=== PATIENT | male | born 1950 | race Caucasian/White ===

== ENCOUNTER → 2018-02-07 | Outpatient (CLI) | payer MEDICARE, BC | END | disposition home or self-care (01) | LOC: KCIC US 11:47 | DX: M48.07 Spinal stenosis, lumbosacral region (principal); M51.36 Other intervertebral disc degeneration, lumbar region; M47.896 Other spondylosis, lumbar region; M25.78 Osteophyte, vertebrae; R94.6 Abnormal results of thyroid function studies | CPT/HCPCS: 72148; 76536 ==

== ENCOUNTER 2018-03-28 09:53 | Emergency (ER) | payer MEDICARE, BC ==
[2018-03-28 10:58] LABS: BILIRUBIN,URINE NEGATIVE (NEG); CLARITY,URINE CLEAR; COLOR,URINE YELLOW; GLUCOSE,URINE NEGATIVE (NEG); NITRITE,URINE NEGATIVE (NEG); PROTEIN,URINE NEGATIVE (NEG-TRACE); UROBILINOGEN,URINE 0.2 mg/dL (0.2 mg/dL)
[2018-03-28] MEDS ORDERED: CONTRAST GIVEN. MC (11:00)
[2018-03-28] MEDS: FAMOTIDINE 20 MG/2 ML VIAL IVP (11:13)
[2018-03-28] MEDS: IV NORMAL SALINE 1000ML BAG 1,000 ML IV (11:14)
[2018-03-28] MEDS: ONDANSETRON PF 4 MG/2 ML VIAL. IV (11:25)
[2018-03-28] MEDS: fentaNYL PF VIAL 100 MCG/2 ML VIAL IV (11:25)
[2018-03-28 11:26] LABS: ADD MAN DIFF? NO
[2018-03-28 11:27] LABS: BACTERIA,URINE FEW /HPF (0-FEW); RBC,URINE RARE /HPF (0-2); SQUAMOUS EPITHELIAL CELL,UR FEW /LPF; WBC,URINE RARE /HPF (0-4)
[2018-03-28 11:33] LABS: BASO % 0 % (0-3); EOS # 0.1 x10^3/uL (0.0-0.7); EOS % 1 % (0-3); HEMATOCRIT 44.5 % (39.0-53.0); HEMOGLOBIN 15.5 g/dL (13.0-17.5); LYMPH % 31 % (24-48); MEAN CORPUSCULAR HEMOGLOBIN 34 pg (25-35); MEAN CORPUSCULAR HGB CONC 35 g/dL (31-37); MEAN CORPUSCULAR VOLUME 98 fL (79-100); MONO # 0.6 x10^3/uL (0.0-1.1); MONO % 9 % (0-9); NEUT # 3.6 x10^3uL (1.8-7.7); NEUT % 58 % (31-73); PLATELET COUNT 211 x10^3/uL (140-400); RED BLOOD COUNT 4.53 x10^6/uL (4.30-5.70); RED CELL DISTRIBUTION WIDTH 13.3 % (11.5-14.5); WHITE BLOOD COUNT 6.2 x10^3/uL (4.0-11.0)
[2018-03-28 11:38] LABS: ANION GAP 11 (6-14); BLOOD UREA NITROGEN 18 mg/dL (8-26); BUN/CREATININE RATIO 18 (6-20); CALCIUM 9.3 mg/dL (8.5-10.1); CARBON DIOXIDE 26 mmol/L (21-32); CHLORIDE 104 mmol/L (98-107); GFR 74.8; GLUCOSE 108 mg/dL (70-99); POTASSIUM 4.2 mmol/L (3.5-5.1); SODIUM 141 mmol/L (136-145)
[2018-03-28 11:46] LABS: ALBUMIN 4.1 g/dL (3.4-5.0); ALK PHOS 67 U/L (46-116); ALT (SGPT) 21 U/L (16-63); AST (SGOT) 21 U/L (15-37); LIPASE 123 U/L (73-393); MAGNESIUM 1.9 mg/dL (1.8-2.4); TOTAL BILIRUBIN 0.5 mg/dL (0.2-1.0); TOTAL PROTEIN 8.3 g/dL (6.4-8.2)
[2018-03-28] MEDS: IOHEXOL 300 MG/ML 100ML VIAL. IV (11:46)
[2018-03-28 12:09] LABS: PARTIAL THROMBOPLASTIN TIME 29 SEC (24-38); PROTHROMBIN TIME PATIENT 12.9 SEC (11.7-14.0)
[2018-03-28 13:23] LABS: FECAL OB PT NEGATIVE (NEG); NEG OBC FOB NEG; POS OBC FOB POS
== END 2018-03-28 13:27 | disposition home or self-care (01) ==
LOC: ER 09:53
DX: K62.5 Hemorrhage of anus and rectum (principal); I10 Essential (primary) hypertension; F17.200 Nicotine dependence, unspecified, uncomplicated
CPT/HCPCS: 36415; 74177; 80053; 81001; 82274; 83690; 83735; 85025; 85610; 85730; 96374; 96375; 99285-25; J2405; J3010; J7030; Q9967; S0028

== ENCOUNTER 2019-06-16 16:55 | Emergency (ER) | payer BC, MEDICARE ==
[~2019-06-16] VITALS: Ht 182.9 cm; Wt 90.7 kg
[~2019-06-16 16:55] MED LIST: ASPI81TA59 PO; ATOR20TA PO; BUDE10.2 IH; Diltiazem Hcl PO; HYDR25SU18 RC; HYOS0.1265 SL; IPRA3AMP29 NEB; LEVO500T59 PO; NITR0.4T24 SL; OXYC10TA PO
[2019-06-16] MEDS ORDERED: IV NORMAL SALINE 1000ML BAG 1,000 ML IV ONE (17:15)
--- NOTE | 2019-06-16 17:22 | PHYS DOC ---
Past Medical History Past Medical History: Arthritis, Hypertension, Liver Disease, Pneumonia Additional Past Medical Histor: OSTEOARTHRITIS,HEP C, chronic back pain, RECTAL BLEEDING ([employer]) Past Surgical History: Other Additional Past Surgical Histo: RIGHT ELBOW IMPLANT, hernia repair ([employer]) Alcohol Use: Rarely Drug Use: None (SAI GRACE APRN) Adult General Chief Complaint Chief Complaint: URINARY RETENTION HPI HPI Patient is a 68 year old male who presents with urinary retention �2 days. Patient states that he feels like he has to urinate frequently and has burning in his urethra and bladder pain. Patient states bladder pain is constant but it does get worse at times. Patient states he feels that his bladder is very full and is painful. His pain does not radiate anywhere. Patient denies any nausea or vomiting or diarrhea. Patient however states that at times he feels like he has to have a bowel movement and only has small round hard pieces of stool come out. Patient states he has been having trouble with constipation for some time. It has been going a little every day. She rates his pain a 10 out 10. ([employer]) Review of Systems Review of Systems GI: abdominal pain, Constipation, denies nausea, vomiting, bloody stools or diarrhea [] : dysuria or denies hematuria [] All other systems were reviewed and found to be within normal limits, except as documented in this note. ([employer]) Current Medications Current Medications Current Medications Medications (Trade) Dose Ordered Sig/Cat Start Time Stop Time Status Last Admin Dose Admin Fentanyl Citrate (Fentanyl 2ml Vial) 50 mcg 1X ONCE 06/16/19 18:30 06/16/19 18:31 DC 06/16/19 18:33 50 MCG Phenazopyridine HCl (Pyridium) 200 mg 1X ONCE 06/16/19 18:30 06/16/19 18:31 DC 06/16/19 18:33 200 MG Sodium Chloride 1,000 ml @ 1,000 mls/hr 1X ONCE 06/16/19 17:15 06/16/19 18:14 DC 06/16/19 17:59 1,000 MLS/HR (OSMEL EMANUEL MD) Allergies Allergies Allergies Coded Allergies Type Severity Reaction Last Updated Verified No Known Drug Allergies 04/16/16 No (OSMEL EMANUEL MD) Physical Exam Physical Exam Constitutional: Well developed, well nourished, no acute distress, non-toxic appearance. [] Cardiovascular:Heart rate regular rhythm, no murmur [] Lungs & Thorax: Bilateral breath sounds clear to auscultation [] Abdomen: Bowel sounds normal, soft, low mid tenderness, Distended bladder, no masses, no pulsatile masses. [] Skin: Warm, dry, no erythema, no rash. [] Back: No tenderness, no CVA tenderness. [] Extremities: No tenderness, no cyanosis, no clubbing, ROM intact, no edema. [] Neurologic: Alert and oriented X 3, normal motor function, normal sensory function, no focal deficits noted. [] Psychologic: Affect normal, judgement normal, mood normal. [] (SAI GRACE APRN) Current Patient Data Vital Signs Vital Signs Date Time Temp Pulse Resp B/P (MAP) Pulse Ox O2 Delivery O2 Flow Rate FiO2 06/16/19 19:50 81 18 96 06/16/19 18:33 Room Air 06/16/19 17:12 98.4 131/98 (109) 98.4 (OSMEL EMANUEL MD) Lab Values Laboratory Tests Test 06/16/19 17:20 06/16/19 17:55 Urine Collection Type Unknown Urine Color Yellow Urine Clarity Clear Urine pH 6.5 Urine Specific [place] <=1.005 Urine Protein Negative mg/dL (NEG-TRACE) Urine Glucose (UA) Negative mg/dL (NEG) Urine Ketones (Stick) Negative mg/dL (NEG) Urine Blood Negative (NEG) Urine Nitrite Negative (NEG) Urine Bilirubin Negative (NEG) Urine Urobilinogen Dipstick 0.2 mg/dL (0.2 mg/dL) Urine Leukocyte Esterase Negative (NEG) Urine RBC 0 /HPF (0-2) Urine WBC 0 /HPF (0-4) Urine Bacteria 0 /HPF (0-FEW) Urine Mucus Slight /LPF White Blood Count 8.3 x10^3/uL (4.0-11.0) Red Blood Count 4.53 x10^6/uL (4.30-5.70) Hemoglobin 15.3 g/dL (13.0-17.5) Hematocrit 43.7 % (39.0-53.0) Mean Corpuscular Volume 97 fL (79-100) Mean Corpuscular Hemoglobin 34 pg (25-35) Mean Corpuscular Hemoglobin Concent 35 g/dL (31-37) Red Cell Distribution Width 12.5 % (11.5-14.5) Platelet Count 201 x10^3/uL (140-400) Neutrophils (%) (Auto) 57 % (31-73) Lymphocytes (%) (Auto) 30 % (24-48) Monocytes (%) (Auto) 10 % (0-9) H Eosinophils (%) (Auto) 3 % (0-3) Basophils (%) (Auto) 0 % (0-3) Neutrophils # (Auto) 4.7 x10^3/uL (1.8-7.7) Lymphocytes # (Auto) 2.5 x10^3/uL (1.0-4.8) Monocytes # (Auto) 0.9 x10^3/uL (0.0-1.1) Eosinophils # (Auto) 0.2 x10^3/uL (0.0-0.7) Basophils # (Auto) 0.0 x10^3/uL (0.0-0.2) Sodium Level 134 mmol/L (136-145) L Potassium Level 3.6 mmol/L (3.5-5.1) Chloride Level 96 mmol/L (98-107) L Carbon Dioxide Level 26 mmol/L (21-32) Anion Gap 12 (6-14) Blood Urea Nitrogen 12 mg/dL (8-26) Creatinine 1.0 mg/dL (0.7-1.3) Estimated GFR (Cockcroft-Gault) 74.5 BUN/Creatinine Ratio 12 (6-20) Glucose Level 74 mg/dL (70-99) Calcium Level 9.6 mg/dL (8.5-10.1) Total Bilirubin 0.5 mg/dL (0.2-1.0) Aspartate Amino Transferase (AST) 31 U/L (15-37) Alanine Aminotransferase (ALT) 24 U/L (16-63) Alkaline Phosphatase 73 U/L (46-116) Total Protein 8.1 g/dL (6.4-8.2) Albumin 4.1 g/dL (3.4-5.0) Albumin/Globulin Ratio 1.0 (1.0-1.7) Laboratory Tests 06/16/19 17:55 Laboratory Tests 06/16/19 17:55 (OSMEL EMANUEL MD) Lab Values Laboratory Tests Test 06/16/19 17:20 06/16/19 17:55 Urine Collection Type Unknown Urine Color Yellow Urine Clarity Clear Urine pH 6.5 Urine Specific [place] <=1.005 Urine Protein Negative mg/dL (NEG-TRACE) Urine Glucose (UA) Negative mg/dL (NEG) Urine Ketones (Stick) Negative mg/dL (NEG) Urine Blood Negative (NEG) Urine Nitrite Negative (NEG) Urine Bilirubin Negative (NEG) Urine Urobilinogen Dipstick 0.2 mg/dL (0.2 mg/dL) Urine Leukocyte Esterase Negative (NEG) Urine RBC 0 /HPF (0-2) Urine WBC 0 /HPF (0-4) Urine Bacteria 0 /HPF (0-FEW) Urine Mucus Slight /LPF White Blood Count 8.3 x10^3/uL (4.0-11.0) Red Blood Count 4.53 x10^6/uL (4.30-5.70) Hemoglobin 15.3 g/dL (13.0-17.5) Hematocrit 43.7 % (39.0-53.0) Mean Corpuscular Volume 97 fL (79-100) Mean Corpuscular Hemoglobin 34 pg (25-35) Mean Corpuscular Hemoglobin Concent 35 g/dL (31-37) Red Cell Distribution Width 12.5 % (11.5-14.5) Platelet Count 201 x10^3/uL (140-400) Neutrophils (%) (Auto) 57 % (31-73) Lymphocytes (%) (Auto) 30 % (24-48) Monocytes (%) (Auto) 10 % (0-9) H Eosinophils (%) (Auto) 3 % (0-3) Basophils (%) (Auto) 0 % (0-3) Neutrophils # (Auto) 4.7 x10^3/uL (1.8-7.7) Lymphocytes # (Auto) 2.5 x10^3/uL (1.0-4.8) Monocytes # (Auto) 0.9 x10^3/uL (0.0-1.1) Eosinophils # (Auto) 0.2 x10^3/uL (0.0-0.7) Basophils # (Auto) 0.0 x10^3/uL (0.0-0.2) Sodium Level 134 mmol/L (136-145) L Potassium Level 3.6 mmol/L (3.5-5.1) Chloride Level 96 mmol/L (98-107) L Carbon Dioxide Level 26 mmol/L (21-32) Anion Gap 12 (6-14) Blood Urea Nitrogen 12 mg/dL (8-26) Creatinine 1.0 mg/dL (0.7-1.3) Estimated GFR (Cockcroft-Gault) 74.5 BUN/Creatinine Ratio 12 (6-20) Glucose Level 74 mg/dL (70-99) Calcium Level 9.6 mg/dL (8.5-10.1) Total Bilirubin 0.5 mg/dL (0.2-1.0) Aspartate Amino Transferase (AST) 31 U/L (15-37) Alanine Aminotransferase (ALT) 24 U/L (16-63) Alkaline Phosphatase 73 U/L (46-116) Total Protein 8.1 g/dL (6.4-8.2) Albumin 4.1 g/dL (3.4-5.0) Albumin/Globulin Ratio 1.0 (1.0-1.7) Laboratory Tests 06/16/19 17:55 Laboratory Tests 06/16/19 17:55 (SAI GRACE APRN) EKG EKG [] (SAI GRACE APRN) Radiology/Procedures Radiology/Procedures [] (SAI GRACE APRN) Impressions: [facility] [address] [place], [place] [id number] IMAGING REPORT Signed PATIENT: ADRIANNA CASTORENA BACCOUNT: [id number] : 1950 LOCATION: ER AGE: 68 SEX: M EXAM STATUS: REG ER ORD. PHYSICIAN: SAI GRACE APRN REASON: urinary retention, constipation PROCEDURE: CT ABDOMEN PELVIS WO CONTRAST Exam: CT abdomen and pelvis without contrast INDICATION: Urinary retention, constipation TECHNIQUE: Sequential axial images through the abdomen and pelvis obtained without IV contrast. Sagittal and coronal reformatted images were reconstructed from the axial data and reviewed. Comparisons: 03/28/2018 FINDINGS: Heart size is normal. No pericardial effusion. Visualized lung bases are clear. No pleural effusion. Evaluation of the solid abdominal organs is limited secondary to noncontrast technique. Liver, spleen, pancreas, gallbladder and adrenals are unremarkable. No perinephric inflammation or hydronephrosis. Several subcentimeter nonobstructing renal calculi within the left kidney. No ureteral calculi. Bladder is decompressed. Gonzalez balloon is noted within the bladder. There is diffuse lateral wall thickening. Large and small bowel are unremarkable. Appendix is normal. No free intra-abdominal air or fluid. No obstruction. Abdominal aorta has a normal course and caliber. No enlarged intra-abdominal lymph nodes are identified. No suspicious osseous lesions or acute fractures. IMPRESSION: 1. Diffuse bladder wall thickening. While this may be at least partly secondary to decompression recommend correlation with urinalysis to exclude cystitis. 2. Nonobstructing left renal calculi. No ureteral calculi or evidence for obstructive uropathy. Exposure: One or more of the following in the visualized dose reduction techniques were utilized for this examination: 1. Automated exposure control 2. Adjustment of the MA and/or KV according to patient size 3. Use of iterative of reconstructive technique Electronically signed by: Shaun Gipson MD (06/16/2019 5:58 PM) [facility] DICTATED and SIGNED BY: SHAUN GIPSON MD DATE: 06/16/19 1758 (SAI GRACE APRN) Course & Med Decision Making Course & Med Decision Making Patient is a 68 year old male who presents with urinary retention �2 days. Patient states that he feels like he has to urinate frequently and has burning in his urethra and bladder pain. Patient states bladder pain is constant but it does get worse at times. Patient states he feels that his bladder is very full and is painful. His pain does not radiate anywhere. Patient denies any nausea or vomiting or diarrhea. Patient however states that at times he feels like he has to have a bowel movement and only has small round hard pieces of stool come out. Patient states he has been having trouble with constipation for some time. It has been going a little every day. She rates his pain a 10 out 10. On arrival to the ED patient states he has urge to urinate and have a bowel movement. Patient went into the bathroom states he was unable to urinate or give a specimen. A ultrasound of his bladder showed 668ml in his bladder. Alert and oriented. Speaks in full clear sentences. Ambulates with a steady gait. Skin pink warm and dry. Low mid abdomen painful to palpation. Denies testicular pain or swelling. Patient has a history of hypertension, liver disease, rectal bleeding, hep C, arthritis, pneumonia and hernia repair. Patient states that for over a year he's been waking up at night having to urinate and having trouble getting his stream to start. A urinary catheter is placed. Urinalysis negative. Blood work unremarkable. Patient will be treated for prostatitis. We will keep the catheter in place. I will refer him to Urology to be seen within [address] shows: 1. Diffuse bladder wall thickening. While this may be at least partly secondary to decompression recommend correlation with urinalysis to exclude cystitis. 2. Nonobstructing left renal calculi. No ureteral calculi or evidence for obstructive uropathy. Rectal Exam: Normal tone, No mass, Positive control Prostate: Soft and Tender, no nodules Stool: Brown Guaiac: Not indicated (SAI GRACE APRN) Course & Med Decision Making I was not involved in the care of this patient after 1800 on 06/16/19. (OSMEL EMANUEL MD) Dragon Disclaimer Dragon Disclaimer This electronic medical record was generated, in whole or in part, using a voice recognition dictation system. (SAI GRACE APRN) Departure Departure Impression: Primary Impression: Urinary retention Disposition: 01 HOME, SELF-CARE Condition: STABLE Referrals: RE VALDEZ MD (PCP) Patient Instructions: Prostatitis, [id number], Urinary Retention, Acute, Male Additional Instructions: FOLLOW UP WITH UROLOGY BY CALLING THEM. YOU NEED TO BE SEEN WITHIN 3 DAYS. TELL THEM YOU HAVE A CATHETER IN PLACE. TAKE MEDICATIONS PRESCRIBED. DR GOODWIN [phone]. Scripts Phenazopyridine Hcl (PYRIDIUM) 100 Mg Tablet 100 MG PO TID for 5 Days, #15 TAB Prov: SAI GRACE APRN 06/16/19 Tamsulosin Hcl (FLOMAX) 0.4 Mg Cap.er.24h 1 CAP PO DAILY, #30 CAP 11 Refills Prov: SAI GRACE APRN 06/16/19 Levofloxacin (LEVOFLOXACIN) 500 Mg Tablet 500 MG PO DAILY, #14 TAB Prov: SAI GRACE APRN 06/16/19 SAI GRACE APRN Jun 16, 2019 17:22 OSMEL EMANUEL MD Jun 17, 2019 06:05
[2019-06-16 17:42] LABS: BILIRUBIN,URINE NEGATIVE (NEG); CLARITY,URINE CLEAR; COLOR,URINE YELLOW; NITRITE,URINE NEGATIVE (NEG); PH,URINE 6.5; PROTEIN,URINE NEGATIVE (NEG-TRACE); UROBILINOGEN,URINE 0.2 mg/dL (0.2 mg/dL)
[2019-06-16 17:47] LABS: BACTERIA,URINE 0 /HPF (0-FEW); RBC,URINE 0 /HPF (0-2); WBC,URINE 0 /HPF (0-4)
--- NOTE | 2019-06-16 18:01 | RAD ---
Exam: CT abdomen and pelvis without contrast INDICATION: Urinary retention, constipation TECHNIQUE: Sequential axial images through the abdomen and pelvis obtained without IV contrast. Sagittal and coronal reformatted images were reconstructed from the axial data and reviewed. Comparisons: 03/28/2018 FINDINGS: Heart size is normal. No pericardial effusion. Visualized lung bases are clear. No pleural effusion. Evaluation of the solid abdominal organs is limited secondary to noncontrast technique. Liver, spleen, pancreas, gallbladder and adrenals are unremarkable. No perinephric inflammation or hydronephrosis. Several subcentimeter nonobstructing renal calculi within the left kidney. No ureteral calculi. Bladder is decompressed. Gonzalez balloon is noted within the bladder. There is diffuse lateral wall thickening. Large and small bowel are unremarkable. Appendix is normal. No free intra-abdominal air or fluid. No obstruction. Abdominal aorta has a normal course and caliber. No enlarged intra-abdominal lymph nodes are identified. No suspicious osseous lesions or acute fractures. IMPRESSION: 1. Diffuse bladder wall thickening. While this may be at least partly secondary to decompression recommend correlation with urinalysis to exclude cystitis. 2. Nonobstructing left renal calculi. No ureteral calculi or evidence for obstructive uropathy. Exposure: One or more of the following in the visualized dose reduction techniques were utilized for this examination: 1. Automated exposure control 2. Adjustment of the MA and/or KV according to patient size 3. Use of iterative of reconstructive technique Electronically signed by: Shaun Correa MD (06/16/2019 5:58 PM) [facility]
[2019-06-16] MEDS ORDERED: fentaNYL PF VIAL 100 MCG/2 ML VIAL IVP ONE (18:30)
[2019-06-16] MEDS ORDERED: PHENAZOPYRIDINE 200 MG TABLET. PO ONE (18:30)
[2019-06-16 18:40] LABS: BASO % 0 % (0-3); EOS # 0.2 x10^3/uL (0.0-0.7); EOS % 3 % (0-3); HEMATOCRIT 43.7 % (39.0-53.0); HEMOGLOBIN 15.3 g/dL (13.0-17.5); LYMPH # 2.5 x10^3/uL (1.0-4.8); LYMPH % 30 % (24-48); MEAN CORPUSCULAR HEMOGLOBIN 34 pg (25-35); MEAN CORPUSCULAR HGB CONC 35 g/dL (31-37); MEAN CORPUSCULAR VOLUME 97 fL (79-100); MONO # 0.9 x10^3/uL (0.0-1.1); MONO % 10 % (0-9); NEUT # 4.7 x10^3/uL (1.8-7.7); NEUT % 57 % (31-73); PLATELET COUNT 201 x10^3/uL (140-400); RED BLOOD COUNT 4.53 x10^6/uL (4.30-5.70); RED CELL DISTRIBUTION WIDTH 12.5 % (11.5-14.5); WHITE BLOOD COUNT 8.3 x10^3/uL (4.0-11.0)
[2019-06-16 18:47] LABS: CALCIUM 9.6 mg/dL (8.5-10.1); GFR 74.5; POTASSIUM 3.6 mmol/L (3.5-5.1)
[2019-06-16 18:53] LABS: ALBUMIN 4.1 g/dL (3.4-5.0); TOTAL BILIRUBIN 0.5 mg/dL (0.2-1.0); TOTAL PROTEIN 8.1 g/dL (6.4-8.2)
[2019-06-16] MEDS ORDERED: LEVO500T8 PO (19:04)
[2019-06-16] MEDS ORDERED: TAMS0.4C97 PO (19:04)
[2019-06-16] MEDS ORDERED: PHEN100T82 PO (19:04)
[2019-06-16 19:50] VITALS: BP 134/78
== END 2019-06-16 19:50 | disposition home or self-care (01) ==
LOC: ER 16:55
DX: R33.9 Retention of urine, unspecified (principal); N20.0 Calculus of kidney; I10 Essential (primary) hypertension; G89.29 Other chronic pain; Z98.890 Other specified postprocedural states
CPT/HCPCS: 36415; 51702; 74176; 80053; 81001; 85025; 96374; 99285; J3010; J7030

== ENCOUNTER 2019-07-19 21:59 | Emergency (ER) | payer MEDICARE ==
[~2019-07-19] VITALS: Ht 182.9 cm; Wt 90.7 kg
[~2019-07-19 21:59] MED LIST changes: +LEVO500T8 PO; +PHEN100T82 PO; +TAMS0.4C97 PO
[2019-07-19 22:46] LABS: BASO # 0.1 x10^3/uL (0.0-0.2); BASO % 1 % (0-3); EOS # 0.2 x10^3/uL (0.0-0.7); EOS % 2 % (0-3); HEMATOCRIT 39.8 % (39.0-53.0); HEMOGLOBIN 13.8 g/dL (13.0-17.5); LYMPH # 2.4 x10^3/uL (1.0-4.8); LYMPH % 26 % (24-48); MEAN CORPUSCULAR HEMOGLOBIN 34 pg (25-35); MEAN CORPUSCULAR HGB CONC 35 g/dL (31-37); MEAN CORPUSCULAR VOLUME 97 fL (79-100); MONO # 1.1 x10^3/uL (0.0-1.1); MONO % 12 % (0-9); NEUT # 5.5 x10^3/uL (1.8-7.7); NEUT % 59 % (31-73); PLATELET COUNT 210 x10^3/uL (140-400); RED CELL DISTRIBUTION WIDTH 13.4 % (11.5-14.5); WHITE BLOOD COUNT 9.2 x10^3/uL (4.0-11.0)
[2019-07-19] MEDS ORDERED: ONDANSETRON PF 4 MG/2 ML VIAL. IV ONE (23:00)
[2019-07-19] MEDS ORDERED: fentaNYL PF VIAL 100 MCG/2 ML VIAL IVP ONE (23:30)
--- NOTE | 2019-07-19 23:33 | RAD ---
PORTABLE CHEST 1V History: Chest pain Comparison: April 17, 2016 Findings: No consolidation or pleural effusion. Normal heart size. Left midlung calcified granuloma, unchanged. Impression: 1. No acute cardiopulmonary process. Electronically signed by: Lakhwinder Vicente DO (07/19/2019 11:31 PM) [facility]
[2019-07-19 23:46] LABS: CALCIUM 9.6 mg/dL (8.5-10.1); CREATININE 1.8 mg/dL (0.7-1.3); GFR 37.8
[2019-07-19 23:51] LABS: ALBUMIN 4.3 g/dL (3.4-5.0); DIRECT BILIRUBIN 0.2 mg/dL (0.0-0.2); MAGNESIUM 1.9 mg/dL (1.8-2.4); TOTAL BILIRUBIN 0.6 mg/dL (0.2-1.0)
[2019-07-20 00:22] VITALS: BP 116/63
--- NOTE | 2019-07-20 00:39 | PHYS DOC ---
Past Medical History Past Medical History: Arthritis, Hypertension, Liver Disease, Pneumonia Additional Past Medical Histor: OSTEOARTHRITIS,HEP C, chronic back pain, RECTAL BLEEDING Past Surgical History: Other Additional Past Surgical Histo: RIGHT ELBOW IMPLANT, hernia repair Alcohol Use: Occasionally Drug Use: None Adult General Chief Complaint Chief Complaint: MULTIPLE COMPLAINTS [facility] HPI Patient is a 68-year-old male who presents with complaint of bilateral leg pain and knee swelling. Patient indicates that he has been diagnosed with peripheral neuropathy and has been taking oxycodone for his pain. Patient states that he used to be a higher dose oxycodone but his doctor just recently had decreased his dosage. He states that he has been taking more of the oxycodone than is prescribed because he needs the medicine for the pain. Patient indicates that he has not been able to sleep for the last 3 nights because of the level of pain. Initially, patient did not admit to having run out of his oxycodone but after a period of time patient did admit to running out of the oxycodone which is why he came into the emergency room. Patient has had some nausea with a lot of dry heaves. Patient rates his pain at a 9 out of 10.[] Review of Systems Review of Systems Constitutional: Denies fever or chills [] Respiratory: Denies cough or shortness of breath [] Cardiovascular: No additional information not addressed in HPI [] GI: Denies abdominal pain. Complains of nausea, vomiting and dry heaves. [] Musculoskeletal: Complains of bilateral leg and left knee pain [] Integument: Denies rash or skin lesions [] All other systems were reviewed and found to be within normal limits, except as documented in this note. Current Medications Current Medications Current Medications Medications (Trade) Dose Ordered Sig/[facility] Start Time Stop Time Status Last Admin Dose Admin Fentanyl Citrate (Fentanyl 2ml Vial) 50 mcg 1X ONCE 07/19/19 23:30 07/19/19 23:31 DC 07/19/19 23:14 50 MCG Ondansetron HCl (Zofran) 4 mg 1X ONCE 07/19/19 23:00 07/19/19 23:01 DC 07/19/19 22:59 4 MG Allergies Allergies Allergies Coded Allergies Type Severity Reaction Last Updated Verified No Known Drug Allergies 04/16/16 No Physical Exam Physical Exam Constitutional: Well developed, well nourished, in mild distress, non-toxic appe arance. [] HENT: Normocephalic, atraumatic, bilateral external ears normal, oropharynx moist, no oral exudates, nose normal. [] Eyes: PERRLA, EOMI, conjunctiva normal, no discharge. [] Neck: Normal range of motion, no tenderness, supple, no stridor. [] Cardiovascular: Mildly tachycardic rate with regular rhythm[] Lungs & Thorax: Bilateral breath sounds clear to auscultation [] Abdomen: Bowel sounds normal, soft, no tenderness. [] Skin: Warm, dry, no erythema, no rash. [] Extremities: No cyanosis, no clubbing, ROM intact. There is swelling around the left knee joint with diffuse tenderness. [] Neurologic: Alert and oriented X 3, no focal deficits noted. [] Psychologic: Affect normal, judgement normal, mood normal. Denies suicidal or homicidal ideations. [] Current Patient Data Vital Signs Vital Signs Date Time Temp Pulse Resp B/P (MAP) Pulse Ox O2 Delivery O2 Flow Rate FiO2 07/20/19 00:22 100 26 116/63 (80) 97 Room Air 07/19/19 22:10 97.8 97.8 Lab Values Laboratory Tests Test 07/19/19 22:40 07/19/19 23:20 White Blood Count 9.2 x10^3/uL (4.0-11.0) Red Blood Count 4.10 x10^6/uL (4.30-5.70) L Hemoglobin 13.8 g/dL (13.0-17.5) Hematocrit 39.8 % (39.0-53.0) Mean Corpuscular Volume 97 fL (79-100) Mean Corpuscular Hemoglobin 34 pg (25-35) Mean Corpuscular Hemoglobin Concent 35 g/dL (31-37) Red Cell Distribution Width 13.4 % (11.5-14.5) Platelet Count 210 x10^3/uL (140-400) Neutrophils (%) (Auto) 59 % (31-73) Lymphocytes (%) (Auto) 26 % (24-48) Monocytes (%) (Auto) 12 % (0-9) H Eosinophils (%) (Auto) 2 % (0-3) Basophils (%) (Auto) 1 % (0-3) Neutrophils # (Auto) 5.5 x10^3/uL (1.8-7.7) Lymphocytes # (Auto) 2.4 x10^3/uL (1.0-4.8) Monocytes # (Auto) 1.1 x10^3/uL (0.0-1.1) Eosinophils # (Auto) 0.2 x10^3/uL (0.0-0.7) Basophils # (Auto) 0.1 x10^3/uL (0.0-0.2) Sodium Level 138 mmol/L (136-145) Potassium Level 4.0 mmol/L (3.5-5.1) Chloride Level 98 mmol/L (98-107) Carbon Dioxide Level 27 mmol/L (21-32) Anion Gap 13 (6-14) Blood Urea Nitrogen 28 mg/dL (8-26) H Creatinine 1.8 mg/dL (0.7-1.3) H Estimated GFR (Cockcroft-Gault) 37.8 Glucose Level 99 mg/dL (70-99) Uric Acid 6.7 mg/dL (3.5-7.2) Calcium Level 9.6 mg/dL (8.5-10.1) Magnesium Level 1.9 mg/dL (1.8-2.4) Total Bilirubin 0.6 mg/dL (0.2-1.0) Direct Bilirubin 0.2 mg/dL (0.0-0.2) Aspartate Amino Transferase (AST) 34 U/L (15-37) Alanine Aminotransferase (ALT) 27 U/L (16-63) Alkaline Phosphatase 70 U/L (46-116) Troponin I Quantitative < 0.017 ng/mL (0.000-0.055) Total Protein 8.0 g/dL (6.4-8.2) Albumin 4.3 g/dL (3.4-5.0) Laboratory Tests 07/19/19 22:40 Laboratory Tests 07/19/19 23:20 EKG EKG [] Radiology/Procedures Radiology/Procedures [] Course & Med Decision Making Course & Med Decision Making Pertinent Labs and Imaging studies reviewed. (See chart for details) Patient moved to room upon arrival was evaluated by your medical staff after which an IV was established and blood work was drawn. Patient given IV doses of pain and nausea medication. Patient did report significant relief in symptoms after treatment. Ultimately after workup was completed, I did recommend admission to this facility with further evaluation and management of withdrawal symptoms. Patient refused admission and signed out AGAINST MEDICAL ADVICE. Dragon Disclaimer Dragon Disclaimer This electronic medical record was generated, in whole or in part, using a voice recognition dictation system. Departure Departure Impression: Primary Impression: Peripheral neuropathy Additional Impressions: Chronic pain Opiate withdrawal Disposition: AGAINST MEDICAL ADVICE Condition: IMPROVED Referrals: RE VALDEZ MD (PCP) Patient Instructions: Chronic Pain Problem Qualifiers Primary Impression: Peripheral neuropathy Peripheral neuropathy type: polyneuropathy, unspecified Qualified Codes: G62.9 - Polyneuropathy, unspecified Additional Impressions: Chronic pain Chronic pain type: other chronic pain Qualified Codes: G89.29 - Other chronic pain BROOKLYNN STONE Jr. DO Jul 20, 2019 00:39
--- NOTE | 2019-07-20 06:48 | EKG ---
[facility] [address] [place] [address] Test Date: 2019-07-19 Test Time: 22:56:17 Pat Name: ADRIANNA CASTORENA Department: Room: Gender: M Content Checker: : 1950 Requested By: RBOOKLYNN STONE Order Number: [id number] Reading MD: Measurements Intervals [place] Rate: 89 P: -6 ID: [id number] QRS: -2 QRSD: 88 T: 43 QT: 352 QTc: 435 Interpretive Statements SINUS RHYTHM LEFTWARD AXIS QRS(T) CONTOUR ABNORMALITY CONSIDER ANTEROSEPTAL MYOCARDIAL DAMAGE CONSISTENT WITH INFERIOR INFARCT PROBABLY OLD ABNORMAL ECG RI6.01 No previous ECG available for comparison
== END 2019-07-20 00:40 | disposition left against medical advice (07) ==
LOC: ER 21:59
DX: G62.9 Polyneuropathy, unspecified (principal); G89.29 Other chronic pain; F11.23 Opioid dependence with withdrawal; R11.2 Nausea with vomiting, unspecified; I10 Essential (primary) hypertension; Z98.890 Other specified postprocedural states
CPT/HCPCS: 36415; 71045; 80048; 80076; 83735; 84484; 84550; 85025; 93005; 96374; 96375; 99285; J2405; J3010